=== PATIENT | female | born 1965 | race Caucasian/White ===

== ENCOUNTER → 2022-04-14 14:06 | Outpatient (BNVA) | payer BC, SELFPAY | PROVIDERS: PCP Family Medicine; Visit Provider Internal Medicine Endocrinology, Diabetes & Metabolism | DX: M81.0 Age-related osteoporosis without current pathological fracture (principal) ==

== ENCOUNTER 2022-04-20 15:49 | Outpatient (REF) | payer BC, SELFPAY ==
[2022-04-20 18:21] LABS: Free T4 (Free Thyroxine) 1.07 ng/dL (0.71-1.85); Phosphorus 3.8 mg/dL (2.7-4.5); Thyroid Stimulating Hormone 2.04 uIU/mL (0.32-4.0); Vitamin D 25-OH Total 24.5 ng/mL (>30)
[2022-04-22 21:09] LABS: Prot Elec - Albumin 4.5 g/dL (3.8-4.8); Prot Elec - Alpha1 0.3 g/dL (0.2-0.3); Prot Elec - Alpha2 0.6 g/dL (0.5-0.9); Prot Elec - Beta 1 0.4 g/dL (0.4-0.6); Prot Elec - Beta 2 0.3 g/dL (0.2-0.5)
[2022-04-26 21:33] LABS: Alkaline Phosphatase Bone 11.8 mcg/L (5.6-29.0)
== END 2022-04-20 15:50 | disposition home or self-care (01) ==
LOC: HO.LAB 15:49
PROVIDERS: PCP Family Medicine; Visit Provider Internal Medicine Endocrinology, Diabetes & Metabolism
DX: M81.0 Age-related osteoporosis without current pathological fracture (principal)
CPT/HCPCS: 82306; 84075; 84100; 84165; 84439; 84443; 86335

== ENCOUNTER 2022-04-22 10:56 | Outpatient (REF) | payer BC, SELFPAY ==
[2022-04-22 12:22] LABS: Creatinine, 24Hr Urine 0.9 G/Day (1.0-2.0); Total Volume 24 Hour Urine 2125 mL
[2022-04-24 18:14] LABS: Calcium, 24 Hr Urine 60 mg/24 h; Calcium/Creatinine Ratio 70 mg/g creat (30-275); Creatinine 24Hr Urine 0.85 g/24 h (0.50-2.15)
== END 2022-04-22 10:57 | disposition home or self-care (01) ==
LOC: HO.LNP 10:56
PROVIDERS: Visit Provider Internal Medicine Endocrinology, Diabetes & Metabolism
DX: M81.0 Age-related osteoporosis without current pathological fracture (principal)
CPT/HCPCS: 82340; 82570